=== PATIENT | female | born 1960 | race Caucasian/White ===

== ENCOUNTER 2018-01-10 14:20 | Inpatient (IN) | payer BC ==
[~2018-01-10] VITALS: Ht 167.6 cm; Wt 96.2 kg
--- NOTE | 2018-01-10 14:30 | NUR ---
EPIGASTRIC PAIN W/ NAUSEA AND VOMITING X YESTERDAY. PT AAOX3, VSS. DENIES SOB, DIZZINESS, WEAKNESS @ THIS TIME. ABD PAIN 12/06. DR. MCCLURE @ BS FOR EVAL.
[2018-01-10] MEDS ORDERED: PANTOPRAZOLE 40 MG VIAL ONE (14:44)
[2018-01-10] MEDS ORDERED: MORPHINE SULFATE INJ 4 MG/ML DISP.SYRIN ONE (14:45)
[2018-01-10] MEDS ORDERED: ONDANSETRON HCL/PF 4 MG/2 ML VIAL ONE (14:45)
[2018-01-10 14:50] LABS: BASOPHILS # (AUTO) 0.1 /CMM (0.0-0.2); BASOPHILS % (AUTO) 0.8 % (0.0-2.0); HEMATOCRIT 40 % (33-45); HEMOGLOBIN 15.2 g/dL (11.5-14.8); LYMPHOCYTES # (AUTO) 1.2 /CMM (0.8-4.8); LYMPHOCYTES % (AUTO) 14.3 % (20.0-44.0); MEAN CORPUSCULAR HEMOGLOBIN 35 PG (26.0-33.0); MEAN CORPUSCULAR HGB CONC 38 g/dl (31.0-36.0); MEAN CORPUSCULAR VOLUME 92 fL (82-100); MONOCYTES # (AUTO) 0.3 /CMM (0.1-1.30); NEUTROPHILS # (AUTO) 7.1 /CMM (1.8-8.9); NEUTROPHILS % (AUTO) 81.9 % (43.0-81.0); PLATELET COUNT (AUTO) 221 /CMM (150-450); RDW COEFFICIENT OF VARIATION 12.5 (11.5-15.0); RED BLOOD CELL COUNT(AUTO) 4.31 MIL/uL (4.0-5.2); WHITE BLOOD COUNT (AUTO) 8.7 K/uL (4.3-11.0)
[2018-01-10 14:54] LABS: CALCIUM, SERUM 9.7 mg/dL (8.5-10.1); CARBON DIOXIDE 27 mmol/L (21-32); CHLORIDE 101 mmol/L (98-107); GLUCOSE 199 mg/dL (74-106); SODIUM SERUM 138 mmol/L (136-145); UREA NITROGEN, BLOOD 14 mg/dL (7-18)
[2018-01-10 14:58] LABS: INR 1.01 (0.85-1.15)
[2018-01-10 14:59] LABS: ALANINE AMINOTRANSFERASE 38 U/L (12-78); ALBUMIN 3.9 g/dL (3.4-5.0); ALKALINE PHOSPHATASE 92 U/L (46-116); ASPARTATE AMINOTRANSFERASE 18 U/L (15-37); BILIRUBIN,DIRECT 0.2 mg/dL (0.0-0.2); BILIRUBIN,TOTAL 0.7 mg/dL (0.2-1.0); LIPASE 80 U/L (73-393); TOTAL PROTEIN, SERUM 8.3 g/dL (6.4-8.2)
[2018-01-10] MEDS ORDERED: MORPHINE SULFATE INJ 2 MG/ML DISP.SYRIN IV ONE (15:00)
[2018-01-10] MEDS ORDERED: ONDANSETRON HCL/PF 4 MG/2 ML VIAL IVP ONE (15:00)
[2018-01-10] MEDS ORDERED: IV NS 0.9% 1,000 ML BAG IV ONE ×2 (15:00→16:00)
[2018-01-10] MEDS ORDERED: PANTOPRAZOLE 40 MG VIAL IV ONE (15:00)
[2018-01-10 15:01] LABS: TROPONIN I < 0.017 ng/mL (0.00-0.056)
[2018-01-10] MEDS ORDERED: PIPERACILLIN /TAZOBACTAM 3.375 G in IV D5W 50 ML IV ONE (16:00)
[2018-01-10] MEDS ORDERED: ANAS1TAB8 PO (16:04)
--- NOTE | 2018-01-10 16:41 | NUR ---
PT EYES CLOSED BUT EASILY AWAKEN WITH VERBAL STIMULI. PT ABD PAIN 08/06 & DYAN WELL, " I FEEL MUCH BETTER ". DENIES N/V, DIZZINESS, CP, SOB @ THIS TIME. WILL CONT TO MONITOR.
[2018-01-10 17:09] LABS: APPEARANCE,URINE Clear (CLEAR); BILIRUBIN,URINE Negative (NEGATIVE); BLOOD, URINE Trace-intact Ery/uL (NEGATIVE); COLOR,URINE Yellow (YELLOW); KETONES,URINE 15 (NEGATIVE); LEUKOCYTE ESTERASE ,URINE Negative (NEGATIVE); NITRITE, URINE Negative (NEGATIVE); PROTEIN,URINE Negative (NEGATIVE); UGLUCOSE Negative (NEGATIVE); UROBILINOGEN,URINE 0.2 EU/dL (0.2)
[2018-01-10] MEDS ORDERED: BUPIVACAINE MPF 0.5% W/EPI INJ 30 ML VIAL ONE (17:14)
[2018-01-10] MEDS ORDERED: LIDOCAINE HCL/PF 1% 30 ML SDV ONE (17:14)
[2018-01-10] MEDS ORDERED: MORPHINE SULFATE INJ 2 MG/ML DISP.SYRIN IV PRN (17:30)
[2018-01-10] MEDS ORDERED: ACETAMINOPHEN 325 MG TABLET PO PRN (17:30)
[2018-01-10] MEDS ORDERED: Z GUARD REMEDY 2 OZ OINT TP PRN (17:30)
[2018-01-10] MEDS ORDERED: MAGNESIUM HYDROXIDE 30 ML UDC PO PRN (17:30)
[2018-01-10] MEDS ORDERED: ZOLPIDEM TARTRATE 5 MG TABLET PO PRN (17:30)
[2018-01-10] MEDS ORDERED: MAG HYDROX/AL HYDROX/SIMETH 30 ML UDC PO PRN (17:30)
[2018-01-10] MEDS ORDERED: LORAZEPAM INJ 2 MG/ML VIAL IV PRN (17:30)
[2018-01-10] MEDS ORDERED: FENTANYL PF 100MCG/2ML AMPUL ONE (18:02)
[2018-01-10] MEDS ORDERED: SUCCINYLCHOLINE CHLORIDE 20 MG/ML VIAL ONE (18:02)
[2018-01-10 18:08] LABS: BACTERIA,URINE Few /HPF (None Seen); RBC,URINE 0-2 /HPF (0-2); SQUAMOUS EPITHELIAL CELL,UR Rare /HPF (None Seen); URINE AMORPHOUS PHOSPHATES Moderate /HPF (None Seen); WBC,URINE 0-2 /HPF (0-3)
[2018-01-10] MEDS ORDERED: MIDAZOLAM HCL 2 MG/2ML VIAL ONE (18:13)
[2018-01-10] MEDS ORDERED: phenytoin SODIUM IV 250 MG/5 ML VIAL IV ONE (19:08)
[2018-01-10] MEDS ORDERED: HYDROMORPHONE INJ 2 MG/ML DISP.SYRIN ONE (19:09)
[2018-01-10 20:00] VITALS: BP 96/63
[2018-01-10 20:40] VITALS: BP 105/57
[2018-01-10 20:55] VITALS: BP 95/62
[2018-01-10] MEDS: IV D5/0.45 NACL 1,000 ML IV PRN (21:04)
[2018-01-10 21:25] VITALS: BP 99/65
[2018-01-10] MEDS: PIPERACILLIN /TAZOBACTAM 3.375 G in IV D5W 50 ML IV SCH (21:28)
[2018-01-10 21:40] VITALS: BP 95/62
--- NOTE | 2018-01-10 22:03 | NUR ---
WARP BLEACHING VAT TENDER NOTES RECEIVED PATIENT FROM OR. CHANGED CURRENT IVF TO D2 1/2NS @ 75ML/HR ORDER. CLARIFIED ORDERS WITH DR. RONEL POSADAS, PATIENT TO BE ADMITTED AT [facility]/TELE. NOTIFIED CHARGE NURSE. INFORMED PATIENT AND FAMILY.
[2018-01-10 22:10] VITALS: BP 96/61
--- NOTE | 2018-01-10 22:30 | NUR ---
VIDEO GAME PROGRAMMER NOTES RECEIVED PT FROM 3W. PT S/P APPENDECTOMY. PT A&OX4. SR ON TELE MONITOR, HR [id number]. PT KEPT NPO. VICKI DRAIN TO L L ABDOMEN. SMALL GLUED INCISIONS TO ABDOMEN. IV IN R AC WITH D5 1/2 NS INFUSING @ 75ML/HR. PT ORIENTED TO FLOOR. ALL SAFETY PRECAUTIONS TAKEN. BED ALARM ON, BED IN LOW LOCKED POSITION, SIDE RAILS UP X2. CALL LIGHT WITHIN REACH. WILL CONT TO MONITOR.
[2018-01-11] VITALS (9 sets, daily range): BP systolic 83–141; BP diastolic 51–79
[2018-01-11] MEDS: PIPERACILLIN /TAZOBACTAM 3.375 G in IV D5W 50 ML IV SCH ×4 (03:57→21:31)
[2018-01-11] MEDS: IV D5/0.45 NACL 1,000 ML IV PRN ×2 (03:58→13:03)
[2018-01-11] MEDS: ONDANSETRON HCL/PF 4 MG/2 ML VIAL IVP PRN ×2 (06:23→12:25)
[2018-01-11] MEDS ORDERED: MORPHINE SULFATE INJ 4 MG/ML DISP.SYRIN ONE (06:35)
[2018-01-11 06:51] LABS: ALBUMIN 2.8 g/dL (3.4-5.0); BILIRUBIN,TOTAL 0.8 mg/dL (0.2-1.0); CALCIUM, SERUM 8.3 mg/dL (8.5-10.1); CREATININE 0.7 mg/dL (0.6-1.3); MAGNESIUM 1.6 mg/dL (1.8-2.4); PHOSPHORUS 3.2 mg/dL (2.5-4.9); POTASSIUM 4.2 mmol/L (3.5-5.1); TOTAL PROTEIN, SERUM 6.8 g/dL (6.4-8.2)
--- NOTE | 2018-01-11 07:01 | NUR ---
RN CLOSING NOTES. NO CHANGE IN PTS CONDITION OVER SHIFT. WILL ENDORSE TO AM RN.
[2018-01-11 07:50] LABS: HEMATOCRIT 37 % (33-45); HEMOGLOBIN 12.4 g/dL (11.5-14.8); LYMPHOCYTES # (AUTO) 0.6 /CMM (0.8-4.8); MEAN CORPUSCULAR HEMOGLOBIN 32 PG (26.0-33.0); MEAN CORPUSCULAR HGB CONC 33 g/dl (31.0-36.0); MEAN CORPUSCULAR VOLUME 96 fL (82-100); MONOCYTES # (AUTO) 0.5 /CMM (0.1-1.30); MONOCYTES % (AUTO) 3.9 % (2.0-12.0); NEUTROPHILS # (AUTO) 10.6 /CMM (1.8-8.9); NEUTROPHILS % (AUTO) 91.1 % (43.0-81.0); PLATELET COUNT (AUTO) 189 /CMM (150-450); RDW COEFFICIENT OF VARIATION 13.8 (11.5-15.0); RED BLOOD CELL COUNT(AUTO) 3.88 MIL/uL (4.0-5.2); WHITE BLOOD COUNT (AUTO) 11.6 K/uL (4.3-11.0)
--- NOTE | 2018-01-11 08:00 | NUR ---
RN NOTES RECEIVED PATIENT IN BED, ALERT AND ORIENTED. BREATHING UNLABORED, ON OXYGEN SUPPORT VIA NASAL CANNULA WITH 2 LPM, S/P APPENDECTOMY, WITH COMPLAINTS OF PAIN 08/06 BUT IS AWARE THAT SHE JUST RECENTLY RECEIVED HER PAIN MEDICATION. ON TELE MONITOR, SINUS RYHTM: HR 83. SKIN WARM TO TOUCH, VICKI DRAIN TO L L ABDOMEN. SMALL GLUED INCISIONS TO ABDOMEN. IV IN R AC WITH D5 1/2 NS INFUSING @ 75ML/HR. PT ORIENTED TO FLOOR. ALL SAFETY PRECAUTION MAINTAINED. BED ALARM ON, BED IN LOW LOCKED POSITION, SIDE RAILS UP X2. CALL LIGHT WITHIN REACH. WILL CONT TO MONITOR.
[2018-01-11] MEDS: ANASTROZOLE 1 MG TABLET PO SCH (09:11)
[2018-01-11] MEDS: PANTOPRAZOLE 40 MG VIAL IV SCH (09:11)
[2018-01-11] MEDS ORDERED: Magnesium 1GM/D5W 100ML PREMIX PIGGYBACK IV ONE (11:30)
[2018-01-11] MEDS: MORPHINE SULFATE INJ 4 MG/ML DISP.SYRIN IV PRN ×3 (12:48→21:31)
[2018-01-11] MEDS: Magnesium 1GM/D5W 100ML PREMIX 100 ML IV SCH ×2 (12:53→14:05)
--- NOTE | 2018-01-11 14:00 | NUR ---
RN NOTES SEEN AND EXAMINED BY DERRICK SHINE NP WITH ORDER TO PLACE BACK PATIENT IN NPO SINCE PATIENT HAS NOT PASS GAS YET. ICE CHIPS OK. ORDER CARRIED OUT.
[2018-01-11] MEDS ORDERED: DEXTROSE 50%-WATER 50 ML DISP.SYRIN IV PRN (14:30)
[2018-01-11] MEDS ORDERED: INSULIN REGULAR, HUMAN 100 UNIT/ML 3 ML VIAL SQ PRN (14:30)
[2018-01-11] MEDS: HYDROCODONE/APAP 5/325MG 1 EACH TABLET PO PRN (15:05)
[2018-01-11] MEDS ORDERED: BLOOD SUGAR DIAGNOSTIC 1 EACH STRIP IN SCH (17:30)
--- NOTE | 2018-01-11 19:31 | NUR ---
RN NOTES ENDORSED FOR CONTINUITY OF CARE. NO ACUTE CHANGES FOR THE ENTIRE SHIFT. ALL NEEDS ATTENDED AND MET. SAFETY MAINTAINED. CALL LIGHT WITHIN REACH
[2018-01-12] VITALS (7 sets, daily range): BP systolic 83–127; BP diastolic 50–77
[2018-01-12] MEDS: MORPHINE SULFATE INJ 4 MG/ML DISP.SYRIN IV PRN (02:16)
[2018-01-12] MEDS: IV D5/0.45 NACL 1,000 ML IV PRN ×2 (03:14→22:14)
[2018-01-12] MEDS: PIPERACILLIN /TAZOBACTAM 3.375 G in IV D5W 50 ML IV SCH ×4 (05:02→21:57)
[2018-01-12] MEDS: HYDROCODONE/APAP 5/325MG 1 EACH TABLET PO PRN ×2 (05:19→10:09)
--- NOTE | 2018-01-12 06:18 | NUR ---
RN NOTES PATIENT IN BED RESTINGF COMFORTABLY. NO RESPIRATORY DISTRESS OR SHORTNESS OF BREATH. ALERT AND ORIENTED. ABLE TO VERBALIZE NEEDS. COMPLAINED OF LOWER ABDOMINAL PAIN (S/P SURGERY) MORPHINE 2 MG GIVE THREE TIMES AT 2 TO 3 HOURS INTERVAL AND NORCO FOR PAIN MANAGEMENT WITH RELIEF. AMBULATORY. ABLE TO GO TO BATHROOM WITH ASSIST. VITAL SIGNS WNL. KEPT CLEAN AND DRY.
[2018-01-12 07:23] LABS: CALCIUM, SERUM 8.5 mg/dL (8.5-10.1); CREATININE 0.8 mg/dL (0.6-1.3); POTASSIUM 3.3 mmol/L (3.5-5.1)
--- NOTE | 2018-01-12 08:00 | NUR ---
RN NOTES RECEIVED PATIENT IN BED, ALERT AND ORIENTED. BREATHING UNLABORED, ON ROOM AIR, SATURATING WELL ON 98% , WITH COMPLAINTS OF PAIN 4/10 BUT CLAIMED TO BE BEING ABLE TO TOLERATE, WOULD WANT TO HAVE THE PAIN MEDICATION IN A LITTLE LATER. ON TELE MONITOR, SINUS RYHTM: HR 80. SKIN WARM TO TOUCH, VICKI DRAIN TO L L ABDOMEN. SMALL GLUED INCISIONS TO LOWER QUADRANT AND THE NAVEL AREA OF THE ABDOMEN. IV IN R AC WITH D5 1/2 NS INFUSING @ 75ML/HR. PT STILL ON NPO BUT OK WITH ICE CHIPS. MADE COMFORTABLE. ALL SAFETY PRECAUTION MAINTAINED. BED ALARM ON, BED IN LOW LOCKED POSITION, SIDE RAILS UP X2. CALL LIGHT WITHIN REACH. WILL CONTINUE TO MONITOR.
[2018-01-12 08:09] LABS: BASOPHILS % (AUTO) 0.4 % (0.0-2.0); EOSINOPHILS % (AUTO) 0.2 % (0.0-6.0); HEMATOCRIT 33 % (33-45); HEMOGLOBIN 11.3 g/dL (11.5-14.8); LYMPHOCYTES # (AUTO) 1.2 /CMM (0.8-4.8); MEAN CORPUSCULAR HEMOGLOBIN 32 PG (26.0-33.0); MEAN CORPUSCULAR HGB CONC 35 g/dl (31.0-36.0); MEAN CORPUSCULAR VOLUME 94 fL (82-100); MONOCYTES # (AUTO) 0.3 /CMM (0.1-1.30); MONOCYTES % (AUTO) 3.6 % (2.0-12.0); NEUTROPHILS # (AUTO) 6.5 /CMM (1.8-8.9); NEUTROPHILS % (AUTO) 80.8 % (43.0-81.0); PLATELET COUNT (AUTO) 166 /CMM (150-450); RDW COEFFICIENT OF VARIATION 12.8 (11.5-15.0); RED BLOOD CELL COUNT(AUTO) 3.52 MIL/uL (4.0-5.2)
[2018-01-12] MEDS: PANTOPRAZOLE 40 MG VIAL IV SCH (08:59)
[2018-01-12] MEDS: ANASTROZOLE 1 MG TABLET PO SCH (08:59)
[2018-01-12] MEDS ORDERED: POTASSIUM CHLORIDE 20 MEQ TAB.PRT.SR PO SCH (10:00)
[2018-01-12] MEDS ORDERED: METOCLOPRAMIDE HCL 10 MG TABLET PO PRN (12:30)
[2018-01-12] MEDS: ONDANSETRON HCL/PF 4 MG/2 ML VIAL IVP PRN (14:53)
--- NOTE | 2018-01-12 14:53 | NUR ---
RN NOTES ADMINISTERED ZOFRAN 4 MG/ML IV PUSH FOR NAUSEA PER PATIENT REQUEST, CONTINUED MONITORING.
--- NOTE | 2018-01-12 19:32 | NUR ---
RN NOTES ENDORSED PATIENT FOR CONTINUITY OF CARE. NO ACUTE CHANGES FOR THE ENTIRE SHIFT. PATIENT ABLE TO PASS GAS AND HAD BM TODAY. ALL NEED ADDRESSED AND ATTENDED. CALL LIGHT LEFT WITHIN WITHIN REACH. SAFETY MAINTAINED
[2018-01-13] VITALS (7 sets, daily range): BP systolic 96–130; BP diastolic 60–89
[2018-01-13] MEDS: PIPERACILLIN /TAZOBACTAM 3.375 G in IV D5W 50 ML IV SCH ×4 (05:02→22:56)
[2018-01-13 06:25] LABS: BASOPHILS % (AUTO) 0.4 % (0.0-2.0); EOSINOPHILS % (AUTO) 0.4 % (0.0-6.0); HEMATOCRIT 40 % (33-45); HEMOGLOBIN 13.8 g/dL (11.5-14.8); LYMPHOCYTES # (AUTO) 1.4 /CMM (0.8-4.8); LYMPHOCYTES % (AUTO) 16.1 % (20.0-44.0); MEAN CORPUSCULAR HEMOGLOBIN 32 PG (26.0-33.0); MEAN CORPUSCULAR HGB CONC 34 g/dl (31.0-36.0); MEAN CORPUSCULAR VOLUME 93 fL (82-100); MONOCYTES # (AUTO) 0.4 /CMM (0.1-1.30); MONOCYTES % (AUTO) 4.5 % (2.0-12.0); NEUTROPHILS # (AUTO) 6.7 /CMM (1.8-8.9); NEUTROPHILS % (AUTO) 78.6 % (43.0-81.0); PLATELET COUNT (AUTO) 227 /CMM (150-450); RDW COEFFICIENT OF VARIATION 12.3 (11.5-15.0); RED BLOOD CELL COUNT(AUTO) 4.31 MIL/uL (4.0-5.2); WHITE BLOOD COUNT (AUTO) 8.5 K/uL (4.3-11.0)
[2018-01-13 06:43] LABS: CALCIUM, SERUM 8.6 mg/dL (8.5-10.1); CREATININE 0.7 mg/dL (0.6-1.3); POTASSIUM 3.4 mmol/L (3.5-5.1)
--- NOTE | 2018-01-13 06:56 | NUR ---
RN NOTE PATIENT RESTED WELL AT NIGHT, AMBULATES WELL WITH ASSISTANCE, HAD 2 BOWEL MOVEMENTS AND ABLE TO PASS GAS, ALL SAFETY MEASURES TAKEN, WILL ENDORSE TO AM SHIFT TO CONTINUE CARE
--- NOTE | 2018-01-13 07:26 | NUR ---
BIBLE READER INITIAL NOTES Report received at bedside. Patient received in bed, awake and resting. Alert and oriented x4. Complaints of pain 4/10 on abdominal area (but patient refuse to take meds for pain mgmt). No SOB/labored breathing noted and reported. Not in any type of distress. Afebrile. On IV antibiotic for s/p appendectomy. VICKI drain on left lateral lower quadrant with no drainage/excessive drainage/bleeding noted. 3 surgical sites clean and dry with no signs of infection noted. Safety measures in place. Will continue to monitor and assess patient. Tele: Sinus Rhythm 78s
[2018-01-13] MEDS: ANASTROZOLE 1 MG TABLET PO SCH (08:27)
[2018-01-13] MEDS: PANTOPRAZOLE 40 MG VIAL IV SCH (08:27)
[2018-01-13] MEDS ORDERED: POTASSIUM CHLORIDE 20 MEQ TAB.PRT.SR PO SCH (12:00)
--- NOTE | 2018-01-13 16:05 | NUR ---
NUTRITION INTERN - PRN NOTES Tylenol requested by patient for discomfort/pain after VICKI removal with BRANDYN Gaspar. No excessive bleeding noted.
[2018-01-13] MEDS: IV D5/0.45 NACL 1,000 ML IV PRN (17:04)
--- NOTE | 2018-01-13 19:38 | NUR ---
INSTRUCTOR OF SOCIOLOGY CLOSING NOTES Report given. Patient awake and alert. Patient on chair with family member. Denies any pain at the moment. IV on right ac# 20g; patent and intact with D5 0.5NS @75ml/hr running, tolerating well. Diet: advanced to [facility] soft. No bleeding noted on dressing after VICKI drain removal. No SOB/labored breathing noted. Not in any type of distress. All needs anticipated and met. Bed in locked and lowest position with call light within reach. Endorsed to oncoming shift nurse. Tele: SR; HR 76
[2018-01-14] VITALS: BP 106/69
[2018-01-14] MEDS: PIPERACILLIN /TAZOBACTAM 3.375 G in IV D5W 50 ML IV SCH ×2 (03:45→10:34)
[2018-01-14 04:00] VITALS: BP 115/69
[2018-01-14 08:00] VITALS: BP 134/71
[2018-01-14] MEDS: PANTOPRAZOLE 40 MG VIAL IV SCH (10:34)
[2018-01-14] MEDS: ANASTROZOLE 1 MG TABLET PO SCH (10:34)
--- NOTE | 2018-01-14 11:33 | NUR ---
Patient refused morning labwork. Requests to leave. "I am pissed. I am leaving this hospital today." Patient offered against medical advice discharge. She spoke with Doctor Dinh and he relayed a message for patient discharge. Doctor Hurd evaluating patient at this time for discharge.
[2018-01-14] MEDS ORDERED: LEVO500T75 PO (11:48)
[2018-01-14 12:13] VITALS: BP 116/78
--- NOTE | 2018-01-14 12:42 | NUR ---
Patient discharge to home ambulatory with steady gait. All belongings and discharge instructions with medication prescription and new reconciliation list given to patient. She verbalized understanding. Patient intravenous site removed. Patient identification bracelet removed.
== END 2018-01-14 12:15 | disposition home or self-care (01) | DRG 339 ==
LOC: EDBD 14:21 → ER 14:21 → TELE 17:10 → MED 17:43 → TELE 17:55 → TELE-TD 22:31 → TELE1 01-11 16:39
PROVIDERS: ADMIT Nurse Practitioner Acute Care; ATTEND Nurse Practitioner Acute Care
PROC: 0DTJ4ZZ Resection of Appendix, Percutaneous Endoscopic Approach (ICD-10-PCS; principal; 2018-01-10 17:30)
DX: K35.3 Acute appendicitis with localized peritonitis (principal); E87.2 Acidosis; E83.42 Hypomagnesemia; I70.0 Atherosclerosis of aorta; Z68.34 Body mass index [BMI] 34.0-34.9, adult; E87.6 Hypokalemia; Z85.3 Personal history of malignant neoplasm of breast; I35.0 Nonrheumatic aortic (valve) stenosis
CPT/HCPCS: 36415; 71045-TC; 76705-TC; 80048-TC; 80053-TC; 80061-TC; 80076-TC; 81000-TC; 82962-TC; 83605-TC; 83690-TC; 83735-TC; 84100-TC; 84484-TC; 85025-TC; 85730-TC; 86850-TC; 87081-TC; 88304-TC; A4606; C9113; J0330; J1100; J1165; J1170; J1815; J1885; J2250; J2270; J2370; J2405; J2543; J2710; J3010; J3475; J3490; J7030; J7060; J8597; Z7610

== ENCOUNTER 2018-01-16 13:36 | Outpatient (CLI) | payer BC ==
[~2018-01-16 13:36] MED LIST: ANAS1TAB8 PO; LEVO500T75 PO
[2018-01-16 14:14] VITALS: BP 127/73
== END 2018-01-16 23:59 | disposition home or self-care (01) ==
LOC: MSC 13:36
PROVIDERS: ATTEND Internal Medicine
DX: Z48.815 Encounter for surgical aftercare following surgery on the digestive system (principal); K35.3 Acute appendicitis with localized peritonitis; Z85.3 Personal history of malignant neoplasm of breast